=== PATIENT | male | born 2000 | race African-American/Black ===

== ENCOUNTER 2024-04-28 06:44 | Emergency (ER) | payer SELFPAY ==
[2024-04-28 06:53] VITALS: BMI 20.9
[2024-04-28] MEDS ORDERED: ACETAMINOPHEN INJECTION 100 ML IVPB ONE (07:59)
[2024-04-28] MEDS ORDERED: VANCOMYCIN 1 GRAM (PRE-DOCKED) 1,000 MG/250 ML BAG IVPB ONE (07:59)
[2024-04-28] MEDS ORDERED: PIPERACILLIN/TAZOB 4.5 GM 4.5 GM/100 ML BAG IVPB ONE (07:59)
[2024-04-28] MEDS ORDERED: DIPHTH,PERTUSS(ACELL),TET 0.5 ML DISP.SYRIN IM ONE ×2 (08:00→08:01)
[2024-04-28 08:12] LABS: BASO % 0.6 % (0-2.0); EOS % 1.2 % (0-4.5); HEMATOCRIT 43.2 % (35.4-49); LYMPH % 22.3 % (8-40); MCH 29.7 pg (25.7-33.7); MCHC 34.8 g/dl (32.0-35.9); MEAN CELL VOLUME 85.5 fl (80-96); MEAN PLT VOLUME 6.5 fl (7.5-11.1); MONO % 6.3 % (3.8-10.2); NEUT % 69.6 % (42.8-82.8); PLATELET COUNT 311 10^3/uL (134-434); RBC 5.05 M/mm3 (4.00-5.60); RDW 12.9 % (11.9-15.9); WHITE BLOOD COUNT 11.1 K/mm3 (4.0-10.0)
[2024-04-28 08:15] LABS: POTASSIUM 3.9 mmol/L (3.5-5.1)
[2024-04-28 08:17] LABS: CALCIUM 8.8 mg/dL (8.5-10.1)
[2024-04-28 08:18] LABS: ALBUMIN 4.2 g/dl (3.4-5.0); BLOOD UREA NITROGEN 14.6 mg/dL (7-18); INR 0.96 (0.83-1.09); PROTHROMBIN TIME (PATIENT) 11.1 SEC (9.7-13.0)
[2024-04-28 08:20] LABS: ACTIVATED PTT 32.3 SECONDS (25.2-36.5)
[2024-04-28 08:21] LABS: CREATININE 1.2 mg/dL (0.55-1.3)
[2024-04-28 08:23] LABS: BILIRUBIN,TOTAL 0.4 mg/dL (0.2-1); TOT PROT 7.8 g/dl (6.4-8.2)
[2024-04-28] MEDS: DIPHTH,PERTUSS(ACELL),TET 0.5 ML DISP.SYRIN IM ONE (08:30)
[2024-04-28] MEDS: ACETAMINOPHEN 1000 MG/100 ML BAG IVPB ONE (08:32)
[2024-04-28] MEDS: PIPERACILLIN/TAZOB 4.5 GM 4.5 GM in DEXTROSE 5%-WATER 100 ML IVPB ONE (08:32)
[2024-04-28] MEDS: VANCOMYCIN 1,000 MG in DEXTROSE 5%-WATER - 250 ML IVPB ONE (09:23)
[2024-04-28] MEDS ORDERED: morphine SULFATE 4 MG/ML VIAL ONE ×2 (09:47→12:13)
[2024-04-28] MEDS: morphine CARPU-JECT 4 MG/1 ML DISP.SYRIN IVPUSH ONE ×2 (09:56→12:12)
[2024-04-28 12:03] VITALS: BP 148/90; PULSE 53; RESP 20
[2024-04-28 12:42] VITALS: TEMP 98
== END 2024-04-28 12:53 | disposition short-term general hospital (02) ==
LOC: JER 06:44
PROC: 3E03329 Introduction of Other Anti-infective into Peripheral Vein, Percutaneous Approach (ICD-10-PCS; principal; 2024-04-28)
PROC: 3E03329 Introduction of Other Anti-infective into Peripheral Vein, Percutaneous Approach (ICD-10-PCS; 2024-04-28)
PROC: 3E033NZ Introduction of Analgesics, Hypnotics, Sedatives into Peripheral Vein, Percutaneous Approach (ICD-10-PCS; 2024-04-28)
PROC: 3E033NZ Introduction of Analgesics, Hypnotics, Sedatives into Peripheral Vein, Percutaneous Approach (ICD-10-PCS; 2024-04-28)
PROC: 3E033NZ Introduction of Analgesics, Hypnotics, Sedatives into Peripheral Vein, Percutaneous Approach (ICD-10-PCS; 2024-04-28)
PROC: 3E0234Z Introduction of Serum, Toxoid and Vaccine into Muscle, Percutaneous Approach (ICD-10-PCS; 2024-04-28)
DX: L02.511 Cutaneous abscess of right hand (principal); X50.1XXA Overexertion from prolonged static or awkward postures, initial encounter; Y93.B2 Activity, push-ups, pull-ups, sit-ups; Z23 Encounter for immunization
CPT/HCPCS: 36415; 73130-TC-RT-FY; 73201-TC-RT; 80053; 83605; 85025; 85610; 85651; 85730; 86140; 86850; 86900; 86901; 87040; 90715; 93005; 93010; 99285-25; J0131; Q9967

== ENCOUNTER 2024-05-03 01:05 | Emergency (ER) | payer SELFPAY ==
[2024-05-03 01:29] VITALS: BP 108/65; PULSE 54; RESP 20; TEMP 97.7; BMI 19.5
== END 2024-05-03 04:08 | disposition left against medical advice (07) ==
LOC: JER 01:05
DX: L02.511 Cutaneous abscess of right hand (principal); Z48.01 Encounter for change or removal of surgical wound dressing
CPT/HCPCS: 99281-25